=== PATIENT | male | born 1930 | race Caucasian/White ===

== ENCOUNTER 2020-01-05 17:58 | Emergency (ER) | payer MEDICAID, MEDICARE, OTHER ==
[2020-01-05] MEDS ORDERED: Ondansetron 4 MG Tab.DIS PO ONE (17:59)
[2020-01-05] MEDS ORDERED: Ondansetron 4 MG/2 ML SDV ONE (18:26)
[2020-01-05] MEDS ORDERED: Ondansetron 4 MG/2 ML SDV IVPUSH ONE (18:29)
[2020-01-05 18:36] LABS: BASE EXCESS ARTERIAL -2 mmol/L ((-2)-(+3)); BICARBONATE,ARTERIAL 18.3 mmol/L (22-26); O2 DELIVERY DEVICE ROOM AIR; O2 SATURATION ARTERIAL 99 % (95-100); PO2 ARTERIAL 95 mmHg (70-100)
--- NOTE | 2020-01-05 18:39 | CR ---
PROCEDURE INFORMATION: Exam: XR Chest, 1 View Exam date and time: 01/05/2020 6:21 PM Age: 69 years old Clinical indication: Shortness of breath TECHNIQUE: Imaging protocol: XR of the chest Views: 1 view. COMPARISON: No relevant prior studies available. FINDINGS: Lungs: Mild elevation of the left hemidiaphragm. Lungs are clear bilaterally. Pleural space: No pleural effusion. No pneumothorax. Heart/Mediastinum: The cardiac silhouette is mildly enlarged. Mediastinal contours are unremarkable. Vasculature: Vascular calcifications in the aorta. Bones/joints: Degenerative changes in the spine. IMPRESSION: 1. No acute cardiopulmonary process. 2. Incidental/nonacute findings are listed in the report.
[2020-01-05 18:40] LABS: ALLEN TEST pos; PCO2 ARTERIAL 19 mmHg (35-45)
--- NOTE | 2020-01-05 18:41 | EDM.PDOC ---
Scribed by Pili Zhong 01/05/20 1840 for Ericka Bravo MD <Ericka Bravo - Last Filed: 01/05/20 18:40> ED HPI GENERAL MEDICAL PROBLEM - General Chief Complaint: Gastrointestinal Problem Stated Complaint: AMBULANCE Time Seen by Provider: 01/05/20 18:05 Source of Information: Reports: Patient, EMS, EMS Notes Reviewed, RN, RN Notes Reviewed History Limitations: Reports: No Limitations - History of Present Illness INITIAL COMMENTS - FREE TEXT/NARRATIVE: Patient presents to ED by [facility] with complaint of COPD. He feels like he is running out of oxygen and is not on oxygen at home. This started right before EMS was called when he laid down in bed. EMS called at 1730 hours. He has had this before with 3 or 4 trips to the ER. He thought he was dizzy because he was hungry. He was at daughter's a "while" ago. No coughing or smoke. His and 3 kids all smoke). He has a little nausea, vomiting since here. No chest pain. Last ate cereal in A.M. Onset: Today Duration: Getting Worse Location: Reports: Chest Quality: Reports: Ache Severity: Moderate Improves with: Reports: None Worsens with: Reports: None Associated Symptoms: Reports: No Other Symptoms - Related Data Allergies Allergy/AdvReac Type Severity Reaction Status Date / Time No Known Allergies Allergy Verified 01/05/20 18:06 ED ROS GENERAL - Review of Systems Review Of Systems: Comprehensive ROS is negative, except as noted in HPI. ED EXAM, GI/ABD - Physical Exam Exam: See Below Exam Limited By: No Limitations General Appearance: Alert, WD/WN, No Apparent Distress Head: Atraumatic, Normocephalic Neck: Normal Inspection Respiratory/Chest: No Respiratory Distress, Lungs Clear, Normal Breath Sounds, No Accessory Muscle Use, Chest Non-Tender Cardiovascular: Regular Rate, Rhythm (sinus rhythm) GI/Abdominal Exam: Normal Bowel Sounds, Soft, Non-Tender, No Organomegaly, No Distention, No Abnormal Bruit, No Mass, Pelvis Stable Back Exam: Normal Inspection, Full Range of Motion, NT Extremities: Normal Inspection, Normal Range of Motion, Non-Tender, Normal Capillary Refill, No Pedal Edema Neurological: Other (inconsistent stories) Skin Exam: Warm, Dry, Intact Course - Re-Assessments/Exams Free Text/Narrative Re-Assessment/Exam: Pt was signed out to Rene SANTA at 1900 shift change 01/05/20 Departure - Departure Disposition: Home, Self-Care 01 Clinical Impression: Gastroenteritis - Discharge Information Instructions: Viral Gastroenteritis, Adult, [id number] Forms: ED Department Discharge Care Plan Goals: The patient was advised of the examination and lab results during the visit. The patient was given IV fluids, IV Zofran and an injection of Phenergan while in the ED. The patient was discharged with Zofran ODT (4 mg) #2 to take 1 by mouth every 6 hours and a script for Zofran (4 mg) #20 to take 1 by mouth every 6 hours as needed for nausea. The patient was encouraged to stick to a BRAT diet (bananas, rice, applesauce and toast) with small frequent sips of fluid. If the patient has any additional symptoms or concerns, the patient should either return to the emergency department or follow-up with his primary care facility. Sepsis Event Note (ED) - Evaluation Sepsis Screening Result: No Definite Risk <Jamin Palomino - Last Filed: 01/05/20 20:45> Course - Vital Signs Last Recorded V/S: Last Vital Signs Temp 36.3 C 01/05/20 18:06 Pulse 82 01/05/20 18:06 Resp 22 H 01/05/20 18:06 BP 152/50 H 01/05/20 18:06 Pulse Ox 100 01/05/20 18:06 - Orders/Labs/Meds Orders: Active Orders 24 hr Category Date Time Status EKG 12 Lead [EKG Documentation Completion] [RC] STAT Care 01/05/20 18:14 Active POC Glucose [Blood Glucose Check, Bedside] [RC] ONETIME Care 01/05/20 18:07 Active DRUG SCREEN, URINE [URCHEM] Stat Lab 01/05/20 18:54 Ordered UA W/MICROSCOPIC [URIN] Stat Lab 01/05/20 18:34 Results Labs: Laboratory Tests 01/05/20 01/05/20 01/05/20 Range/Units 18:31 18:34 18:35 WBC 10.6 H (5.0-10.0) 10^3/uL RBC 4.57 L (4.6-6.2) 10^6/uL Hgb 14.5 (14.0-18.0) g/dL Hct 41.1 (40.0-54.0) % MCV 89.9 (80-100) fL MCH 31.7 (27.0-34.0) pg MCHC 35.3 H (33.0-35.0) g/dL Plt Count 149 L (150-450) 10^3/uL Neut % (Auto) 73.6 (42.2-75.2) % Lymph % (Auto) 18.6 L (20.5-50.1) % [place] % (Auto) 6.8 (2-8) % Eos % (Auto) 0.7 L (1.0-3.0) % Baso % (Auto) 0.3 (0.0-1.0) % ABG pH 7.59 H (7.35-7.45) ABG pCO2 19 L* (35-45) mmHg ABG pO2 95 (70-100) mmHg ABG HCO3 18.3 L (22-26) mmol/L ABG O2 Saturation 99 (95-100) % ABG Base Excess -2 ((-2)-(+3)) mmol/L Brian Test pos O2 Delivery Device Room air Sodium (136-145) mmol/L Potassium (3.5-5.1) mmol/L Chloride (98-107) mmol/L Carbon Dioxide (21-32) mmol/L Anion Gap (7-13) mEq/L BUN (7-18) mg/dL Creatinine (0.70-1.30) mg/dL Est Cr Clr Drug Dosing mL/min Estimated GFR (MDRD) BUN/Creatinine Ratio (No establ ref range) Glucose (74-99) mg/dL Lactic Acid (0.4-2.0) mmol/L Calcium (8.5-10.1) mg/dL Total Bilirubin (0.2-1.0) mg/dL AST (15-37) U/L ALT (16-63) U/L Alkaline Phosphatase (46-116) U/L Ammonia (11-32) umol/L Troponin I (0.000-0.056) ng/mL Total Protein (6.4-8.2) g/dL Albumin (3.4-5.0) g/dL Globulin Albumin/Globulin Ratio Urine Color Yellow (YELLOW) Urine Appearance Slightly cloudy (CLEAR) Urine pH 7.0 (5.0-9.0) Ur Specific [place] 1.025 (1.005-1.030) Urine Protein 100 H (NEGATIVE) Urine Glucose (UA) Negative (NEGATIVE) Urine Ketones 80 H (NEGATIVE) Urine Occult Blood Negative (NEGATIVE) Urine Nitrite Negative (NEGATIVE) Urine Bilirubin Negative (NEGATIVE) Urine Urobilinogen 0.2 (0.2-1.0) mg/dL Ur Leukocyte Esterase Small H (NEGATIVE) Ethyl Alcohol (0) mg/dL 01/05/20 01/05/20 01/05/20 Range/Units 18:35 18:35 18:35 WBC (5.0-10.0) 10^3/uL RBC (4.6-6.2) 10^6/uL Hgb (14.0-18.0) g/dL Hct (40.0-54.0) % MCV (80-100) fL MCH (27.0-34.0) pg MCHC (33.0-35.0) g/dL Plt Count (150-450) 10^3/uL Neut % (Auto) (42.2-75.2) % Lymph % (Auto) (20.5-50.1) % [place] % (Auto) (2-8) % Eos % (Auto) (1.0-3.0) % Baso % (Auto) (0.0-1.0) % ABG pH (7.35-7.45) ABG pCO2 (35-45) mmHg ABG pO2 (70-100) mmHg ABG HCO3 (22-26) mmol/L ABG O2 Saturation (95-100) % ABG Base Excess ((-2)-(+3)) mmol/L Brian Test O2 Delivery Device Sodium 136 (136-145) mmol/L Potassium 3.7 (3.5-5.1) mmol/L Chloride 99 (98-107) mmol/L Carbon Dioxide 20 L (21-32) mmol/L Anion Gap 20.7 H (7-13) mEq/L BUN 17 (7-18) mg/dL Creatinine 1.49 H (0.70-1.30) mg/dL Est Cr Clr Drug Dosing 44.98 mL/min Estimated GFR (MDRD) 47 BUN/Creatinine Ratio 11.4 (No establ ref range) Glucose 151 H (74-99) mg/dL Lactic Acid 4.2 H* (0.4-2.0) mmol/L Calcium 9.2 (8.5-10.1) mg/dL Total Bilirubin 0.7 (0.2-1.0) mg/dL AST 18 (15-37) U/L ALT 21 (16-63) U/L Alkaline Phosphatase 63 (46-116) U/L Ammonia < 10 L (11-32) umol/L Troponin I < 0.017 (0.000-0.056) ng/mL Total Protein 7.0 (6.4-8.2) g/dL Albumin 4.1 (3.4-5.0) g/dL Globulin 2.9 Albumin/Globulin Ratio 1.4 Urine Color (YELLOW) Urine Appearance (CLEAR) Urine pH (5.0-9.0) Ur Specific [place] (1.005-1.030) Urine Protein (NEGATIVE) Urine Glucose (UA) (NEGATIVE) Urine Ketones (NEGATIVE) Urine Occult Blood (NEGATIVE) Urine Nitrite (NEGATIVE) Urine Bilirubin (NEGATIVE) Urine Urobilinogen (0.2-1.0) mg/dL Ur Leukocyte Esterase (NEGATIVE) Ethyl Alcohol (0) mg/dL 01/05/20 Range/Units 18:35 WBC (5.0-10.0) 10^3/uL RBC (4.6-6.2) 10^6/uL Hgb (14.0-18.0) g/dL Hct (40.0-54.0) % MCV (80-100) fL MCH (27.0-34.0) pg MCHC (33.0-35.0) g/dL Plt Count (150-450) 10^3/uL Neut % (Auto) (42.2-75.2) % Lymph % (Auto) (20.5-50.1) % [place] % (Auto) (2-8) % Eos % (Auto) (1.0-3.0) % Baso % (Auto) (0.0-1.0) % ABG pH (7.35-7.45) ABG pCO2 (35-45) mmHg ABG pO2 (70-100) mmHg ABG HCO3 (22-26) mmol/L ABG O2 Saturation (95-100) % ABG Base Excess ((-2)-(+3)) mmol/L Brian Test O2 Delivery Device Sodium (136-145) mmol/L Potassium (3.5-5.1) mmol/L Chloride (98-107) mmol/L Carbon Dioxide (21-32) mmol/L Anion Gap (7-13) mEq/L BUN (7-18) mg/dL Creatinine (0.70-1.30) mg/dL Est Cr Clr Drug Dosing mL/min Estimated GFR (MDRD) BUN/Creatinine Ratio (No establ ref range) Glucose (74-99) mg/dL Lactic Acid (0.4-2.0) mmol/L Calcium (8.5-10.1) mg/dL Total Bilirubin (0.2-1.0) mg/dL AST (15-37) U/L ALT (16-63) U/L Alkaline Phosphatase (46-116) U/L Ammonia (11-32) umol/L Troponin I (0.000-0.056) ng/mL Total Protein (6.4-8.2) g/dL Albumin (3.4-5.0) g/dL Globulin Albumin/Globulin Ratio Urine Color (YELLOW) Urine Appearance (CLEAR) Urine pH (5.0-9.0) Ur Specific [place] (1.005-1.030) Urine Protein (NEGATIVE) Urine Glucose (UA) (NEGATIVE) Urine Ketones (NEGATIVE) Urine Occult Blood (NEGATIVE) Urine Nitrite (NEGATIVE) Urine Bilirubin (NEGATIVE) Urine Urobilinogen (0.2-1.0) mg/dL Ur Leukocyte Esterase (NEGATIVE) Ethyl Alcohol < 3 (0) mg/dL Meds: Medications Discontinued Medications Generic Name Dose Route Start Last Admin Trade Name Freq PRN Reason Stop Dose Admin Sodium Chloride 1,000 mls @ 999 mls/hr 01/05/20 18:48 01/05/20 18:53 Normal Saline IV 01/05/20 19:48 999 mls/hr .BOLUS ONE Administration Iopamidol 100 ml 01/05/20 19:30 01/05/20 19:39 Isovue-300 (61%) IVPUSH 01/05/20 19:31 100 ml ONETIME ONE Administration Ondansetron HCl 4 mg 01/05/20 18:29 01/05/20 18:30 Zofran IVPUSH 01/05/20 18:30 4 mg ONETIME ONE Administration Ondansetron HCl Confirm 01/05/20 18:26 01/05/20 18:30 Zofran Administered 01/05/20 18:27 Not Given Dose 4 mg .ROUTE .STK-MED ONE Promethazine HCl 25 mg 01/05/20 18:48 01/05/20 18:58 Phenergan IM 01/05/20 18:49 25 mg ONETIME ONE Administration Departure - Departure Time of Disposition: 20:42 Condition: Fair - Discharge Information *PRESCRIPTION DRUG MONITORING PROGRAM REVIEWED*: Not Applicable *COPY OF PRESCRIPTION DRUG MONITORING REPORT IN PATIENT FUNMILAYO: Not Applicable Sepsis Event Note (ED) - Focused Exam Vital Signs: Vital Signs Temp Pulse Resp BP Pulse Ox 01/05/20 18:06 36.3 C 82 22 H 152/50 H 100 I have read and agree with the documentation that has been completed regarding this visit. By signing this record, I attest that the documentation was completed in my physical presence and is an accurate record of the encounter.
[2020-01-05] MEDS ORDERED: Promethazine 25 MG/ML SDV IM ONE (18:48)
[2020-01-05] MEDS ORDERED: Sodium Chloride 0.9% 1,000 ML IV ONE (18:48)
[2020-01-05 19:07] LABS: ANION GAP 20.7 mEq/L (7-13); CHLORIDE,CL 99 mmol/L (98-107); SODIUM,NA 136 mmol/L (136-145)
[2020-01-05] MEDS ORDERED: Iopamidol 612 MG/ML 100 ML Bottle IVPUSH ONE (19:30)
--- NOTE | 2020-01-05 20:26 | CT ---
PROCEDURE INFORMATION: Exam: CT Abdomen And Pelvis With Contrast Exam date and time: 01/05/2020 7:49 PM Age: 69 years old Clinical indication: Nausea and vomiting and other: Pain; Additional info: Abdominal pain, nausea/vomiting TECHNIQUE: Imaging protocol: Computed tomography of the abdomen and pelvis with intravenous contrast. Sagittal and coronal reformatted images were created and reviewed. Radiation optimization: All CT scans at this facility use at least one of these dose optimization techniques: automated exposure control; mA and/or kV adjustment per patient size (includes targeted exams where dose is matched to clinical indication); or iterative reconstruction. Contrast material: [id number]; Contrast volume: 70 ml; Contrast route: INTRAVENOUS (IV); COMPARISON: No relevant prior studies available. FINDINGS: Lungs: Mild elevation of the left hemidiaphragm. 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 Pleural space: No pleural effusion. Heart: Mild enlargement of the heart. Calcification of the aortic valve. Liver: The liver is unremarkable. Gallbladder and bile ducts: Patient has had a previous cholecystectomy. Dilatation of the biliary ducts, not unexpected in a patient who has had a prior cholecystectomy. Pancreas: The pancreas is unremarkable. No pancreatic ductal dilatation. Spleen: The spleen is unremarkable. Adrenals: The right and left adrenal glands are unremarkable. Kidneys and ureters: Multiple simple cysts in the right kidney. The largest measures 6.2 cm. The left kidney is unremarkable. The right and left ureters are unremarkable. Stomach and bowel: Moderate hiatal hernia. Numerous diverticula in the descending colon and sigmoid colon. Scattered diverticula in ascending colon. No evidence for diverticulitis. Fluid within the small bowel without evidence of mesenteric lymphadenopathy or bowel wall thickening. Appendix: Appendix not definitely visualized. No inflammatory changes in the pericecal region however. Intraperitoneal space: No free intraperitoneal air. No ascites. No loculated fluid collections to suggest an abscess. Vasculature: Moderate atherosclerotic calcification in the coronary arteries. Enlarged central pulmonary arteries, this may suggest pulmonary hypertension. The visualized main pulmonary artery measures 4.1 cm in diameter (series 3, image 1). Moderate atherosclerotic changes in the visualized arteries. No evidence for aortic aneurysm or aortic dissection. Hepatic veins, portal veins, splenic vein, and SMV are patent. Lymph nodes: No lymphadenopathy. Bladder: Unremarkable as visualized. Reproductive: The prostate gland is mildly enlarged. Nonspecific parenchymal calcifications in the prostate gland. Bones/joints: Degenerative changes in the spine, sacroiliac joints, and hips. Mild multilevel foraminal stenosis in the L2-L3 through L5-S1 . Multilevel foraminal stenosis of varying severity in the lumbar spine. Soft tissues: No acute abnormality in the extra-abdominal soft tissues. IMPRESSION: 1. Fluid within the small bowel without evidence of mesenteric lymphadenopathy or bowel wall thickening. This may reflect viral gastroenteritis in the appropriate clinical situation. 2. 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 3. Enlarged central pulmonary arteries, this may suggest pulmonary hypertension. 4. Moderate hiatal hernia. 5. Numerous diverticula in the descending colon and sigmoid colon. Scattered diverticula in ascending colon. No evidence for diverticulitis. 6. Incidental/nonacute findings are listed in the report. COMMENTS: Consistent with the [employer]'s Incidental Findings Committee white paper (J Am Sarahi Radiol 2018): Any incidental renal lesion less than 1.0 cm or classified as too small to characterize, or any incidental cystic renal lesion characterized as simple-appearing, is likely benign. No follow-up imaging is recommended for these lesions per consensus recommendations based on imaging criteria.
[2020-01-05] MEDS ORDERED: Ondansetron 4 MG Tab.DIS ONE (20:47)
== END 2020-01-05 21:00 | disposition home or self-care (01) ==
LOC: EDBD → DL.ED 17:58
DX: K52.9 Noninfective gastroenteritis and colitis, unspecified (principal)
CPT/HCPCS: 36415; 36600; 71045; 74177; 80053; 80305; 80307; 81001; 82140; 82803; 82962; 83605; 84484; 85025; 93005; 96361; 96372; 96374; 99285; A9270; J2405; J2550; J7030; Q9967